=== PATIENT | female | born 1995 | race Hispanic/Latino ===

== ENCOUNTER → 2023-11-11 | Emergency (ER) | payer SELFPAY ==
[~2023-11-11] MED LIST: NA CHLORIDE 0.9% 1,000 ML ONE
[2023-11-11 18:57] LABS: Absolute Lymphocytes (CBC) 2.6 K/uL (0.7-4.9); Lymphocytes % 20.6 % (15.3-44.8); MCV 87.2 fL (80-100); MPV 9.5 fL (7.6-11.3); Platelets 214 thou/uL (152-406)
[2023-11-11 19:16] LABS: Albumin 4.4 g/dL (3.4-5.0); Bilirubin Direct 0.1 mg/dL (0-0.2); Bilirubin Indirect, Calculated 0.4 mg/dL (0.2-0.8); Bilirubin Total 0.5 mg/dL (0.2-1.0); Potassium 3.6 mEq/L (3.5-5.1); Protein, Total 8.3 g/dL (6.4-8.2)
[2023-11-11 19:27] LABS: Protime INR 0.98
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
[2023-11-11 23:02] LABS: Barbiturates NEGATIVE (NEGATIVE); Benzodiazepines NEGATIVE (NEGATIVE); Cocaine POSITIVE (NEGATIVE); METHAMPHETAM NEGATIVE (NEGATIVE); Methadone NEGATIVE (NEGATIVE); Opiates NEGATIVE (NEGATIVE); Phencyclidine NEGATIVE (NEGATIVE); THC Cannibis POSITIVE (NEGATIVE)
[2023-11-11 23:08] LABS: Specific Gravity > 1.030 (1.005-1.030); Urine Bacteria None Seen /HPF (<20); Urine Bilirubin NEGATIVE (Negative); Urine Blood Negative (Negative); Urine Clarity Clear (Clear); Urine Color Colorless (Yellow); Urine Glucose NEGATIVE (Negative); Urine Mucus Slight /HPF (None Seen); Urine Protein NEGATIVE (Negative); Urine RBC <5 /HPF (None Seen); Urine Urobilinogen Normal (Normal); Urine pH 5.5 (5.0-7.0)
[2023-11-11 23:11] LABS: Specific Gravity > 1.030 (1.005-1.030)
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
[2023-11-12 02:59] VITALS: BP 104/73; TEMP 98; O2SAT 97
--- NOTE | 2023-11-12 14:30 | EKG ---
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
== END ==
LOC: EEVIPCON 18:22 → ER 18:22
DX: F10.929 Alcohol use, unspecified with intoxication, unspecified (principal); F14.90 Cocaine use, unspecified, uncomplicated; N39.0 Urinary tract infection, site not specified; Z04.71 Encounter for examination and observation following alleged adult physical abuse
CPT/HCPCS: 36415; 70450; 71260; 72125; 74177; 80048; 80076; 80179; 80307; 81001; 81025; 82077; 84703; 85025; 85610; 85730; 87086; 87088; 93005; J7030; Q9967